=== PATIENT | female | born 1950 | race Caucasian/White ===

== ENCOUNTER 2022-01-22 16:10 | Emergency (ER) | payer MEDICARE, SELFPAY ==
--- NOTE | ~2022-01-22 | CT_ITS ---
EXAMINATION: CT BRAIN W/O DATE: 01/22/2022 19:26 INDICATION: Status post fall. Trauma to the head and face. TECHNIQUE: Computed tomography (CT) of the head was performed without intravenous contrast. The dose- length product was 605.33 mGy-cm. COMPARISON: No prior studies for comparison. FINDINGS: Generalized atrophy. There are scattered mild periventricular and subcortical white matter changes, most likely related to small vessel ischemic disease (microangiopathy). There is a right matilda triculostomy catheter extending from the right posterior parietal skull into the frontal horn of the left lateral ventricle. There are surgical changes consistent with left frontal craniotomy. There are nasal fractures bilaterally. There is partial opacification of the left frontal sinus. Mastoids are pneumatized. No ventriculomegaly or midline shift. Midline sagittal images demonstrate a normal corpus callosum, c raniovertebral junction and sella turcica. Basilar cisterns are patent. IMPRESSION: 1. No acute intracranial abnormality. 2: Bilateral nasal fractures. Reviewed, dictated and finalized at location A.
--- NOTE | ~2022-01-22 | CT_ITS ---
EXAMINATION: CT facial bones wo con DATE: 01/22/2022 19:26 INDICATION: Trauma to the face. TECHNIQUE: Computed tomography (CT) of the facial bones was performed without intravenous contrast. T charissa dose-length product was 324.09 mGy-cm. COMPARISON: None FINDINGS: There is a left frontal craniotomy defect. There is a ventriculostomy catheter. There are s urgical changes consistent with left orbital repair. There are bilateral nasal fractures. There is a fracture of the anterior aspect of the nasal septum. Leftward nasal septal deviation. Ostiomeatal uni ts are patent. Orbits are intact without blowout fracture. Zygomatic arches are within normal limits. There are bilateral symmetric degenerative changes of the temporomandibular joints. The mandible and maxilla are intact. There is surgical material present in the left frontal lobe, possibly related to embolization. IMPRESSION: 1. Acute bilateral nasal fractures with involvement of the anterior margin of the nasal septum. Reviewed, dictated and finalized at location A. IMPRESSION: 1. Acute bilateral nasal fractures with involvement of the anterior margin of t he nasal septum.
[2022-01-22 16:35] VITALS: BP 171/86; PULSE 72; RESP 14; TEMP 36.6; O2SAT 100
--- NOTE | 2022-01-22 20:14 | ED.FALL ---
HPI - Fall General Chief Complaint: Fall Stated Complaint: fall, nose injury Time Seen by Provider: 01/22/22 19:04 History of Present Illness HPI Narrative: Patient was here for a family reunion and while unloading the car, that knee gave out and she actually face planted on the ground, denies any loss of consciousness, does state that she was having some bleeding from her nose and cuts to her nose. Denies any focal numbness or weakness, has no issues with ambulating at this time other than some soreness in her knee where she fell. Related Data Allergies Allergy/AdvReac Type Severity Reaction Status Date / Time No Known Allergies Allergy Verified 01/22/22 16:39 Review of Systems Review of Systems: HEENT: Facial lacerations and nose trauma GI: No nausea or vomiting M/S: Left knee pain SKIN: Laceration to face Exam Narrative: EXAMINATION OF ORGAN SYSTEMS/BODY AREAS: Constitutional: Vital signs per nursing GENERAL:[No acute distress, non-toxic appearing.] HEAD: Normal with no signs of head trauma. NECK: No tenderness to C spine, full ROM EYES: Bruising around both eyes ENT: Bruising/deformity of nose, 2 small 1cm lacs to nasal bridge LUNGS: Nonlabored breathing. HEART: [Regular rate and rhythm] ABD: [Soft], [nontender to palpation] EXT: Some tenderness to left knee but full ROM and ambulating SKIN: Laceration to nasal bride NEURO: [Alert and oriented x 3. No gross focal sensory or strength deficits.] PSYCH: Normal affect Course Vital Signs Vital signs: Vital Signs Temperature 97.8 F 01/22/22 16:35 Pulse Rate 72 01/22/22 16:35 Respiratory Rate 14 01/22/22 16:35 Blood Pressure 171/86 H 01/22/22 16:35 Pulse Oximetry 100 01/22/22 16:35 Temperature 97.8 F 01/22/22 16:35 Pulse Rate 72 01/22/22 16:35 Respiratory Rate 14 01/22/22 16:35 Blood Pressure 171/86 H 01/22/22 16:35 Pulse Oximetry 100 01/22/22 16:35 Procedures Laceration Laceration 1: Site: face Description: linear and clean Depth: simple, single layer Pre-repair: irrigated and irrigated extensively ====== Skin Level ====== Skin layer closed with: dermabond and steri strips ====== Subcutaneous Layer ====== ====== Muscle Layer ====== ====== Tendon Layer ====== MDM - Fall MDM Narrative Medical decision making narrative: 71-year-old female presents after fall to her face, vital signs stable here, she is well-appearing with normal neurologic exam but she does have some small cuts to her nose mild deformity, no active epistaxis. I did obtain CT scans given her age to rule out intracranial abnormality, she does have bilateral nasal fractures, however she is not having any active epistaxis, she is breathing normally, given how small the lacerations are on her face and there is no tension across the skin, I do feel skin glue was appropriate. Wound well-approximated. She also will be given prophylactic antibiotics and Tdap will be updated. She is well-appearing and stable for discharge at this time, follow-up to her primary care doctor and return precautions provided. Discharge Plan Discharge Clinical Impression: Fractured nasal bones, Face lacerations Patient Disposition: Home, Self-Care Condition: Stable Instructions: Antibiotic Form, Nasal Fracture (ED) Additional Instructions: Be careful about blowing your nose; ice your injuries, take the medications as prescribed (including the antibiotics to prevent any infection), and feel free to come back if you have any further issues. Prescriptions: New cephalexin 500 mg capsule 500 mg PO Q12H 5 Days Qty: 10 0RF fluticasone propionate [Allergy Relief (fluticasone)] 50 mcg/actuation spray,suspension 1 spray intranasal DAILY Qty: 16 0RF Rx Instructions: administer into each nostril Follow-up/Referrals: Felipe Hardy MD [Physician] - 2 Days PHYSICIAN NOT ON STAFF,NONSTAFF [Primary Care
== END 2022-01-22 20:25 | disposition home or self-care (01) ==
PROVIDERS: Emergency Provider Emergency Medicine
DX: S02.2XXA Fracture of nasal bones, initial encounter for closed fracture (principal); S01.21XA Laceration without foreign body of nose, initial encounter; W18.39XA Other fall on same level, initial encounter
CPT/HCPCS: 12011; 70450; 70486; 99284